=== PATIENT | male | born 1995 | race Caucasian/White ===

== ENCOUNTER 2018-07-30 13:38 | Emergency (ER) | payer SELFPAY ==
[~2018-07-30] VITALS: Ht 167.6 cm; Wt 63.6 kg
[2018-07-30 13:47] VITALS: Ht 167.6 cm; Wt 63.6 kg
[2018-07-30] MEDS ORDERED: ROBAXIN500 MG PO (16:19)
[2018-07-30 19:33] VITALS: BP 125/67
== END 2018-07-30 16:31 | disposition home or self-care (01) ==
LOC: D.ER 13:38
DX: S39.011A Strain of muscle, fascia and tendon of abdomen, initial encounter (principal); X50.0XXA Overexertion from strenuous movement or load, initial encounter; Y93.89 Activity, other specified; Y92.89 Other specified places as the place of occurrence of the external cause